=== PATIENT | male | born 1990 | race African-American/Black ===

== ENCOUNTER 2021-02-23 13:30 | Emergency (ER) | payer SELFPAY ==
[2021-02-23 13:38] VITALS: BP 128/83; PULSE 64; RESP 18; TEMP 37.1; O2SAT 98; BMI 20.2
--- NOTE | 2021-02-23 13:53 | ECG_ITS ---
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 Measurements Intervals [place] Rate: 54 P: 67 WA: 191 QRS: 75 QRSD: 95 T: 71 QT: 426 QTc: 406 Interpretive Statements SINUS BRADYCARDIA No previous ECG available for comparison Electronically Signed On 02-23-2021 19:56:05 CDT by Bradford Simpson M.D. [id number]
--- NOTE | 2021-02-23 13:53 | XR_ITS ---
WS: [id number] Portable AP upright chest, 02/23/2021 Clinical Data: chest pain Comparison: None. Findings: No nodules, masses or effusions are seen. The heart is normal. The pulmonary vascularity is not increased. No pneumonia or pneumothorax is seen. XR/XR chest 1V portable [id number] Impression: Negative chest.
--- NOTE | 2021-02-23 15:43 | PC.NURSE ---
Patient nurse is at bedside.
--- NOTE | 2021-02-23 15:50 | W.ED.CHESTPA ---
HPI - Chest Pain General: Chief Complaint: Chest Pain Stated Complaint: LUNG PAIN Time Seen by Provider: 02/23/21 15:24 History of Present Illness: HPI narrative: 30-year-old black male presents emergency room complaining of left upper chest pain. Is worse when he takes a deep breath. He is equated it with a dust and his asthma. He is not currently on any antibiotics. He does use albuterol as needed for his asthma. He also has a history of Crohn's has not been particularly having any difficulty with that recently. He denies any productive cough denies any fever. Pain is positional and reproducible with motion and with deep inspiration MD complaint: chest pain Onset (ago): hour(s) Timing of current episode: episodic Prior episodes: No Onset: during rest Pain location: left chest Pain radiation: left arm Severity: moderate Quality: sharp Relieving factors: rest and remaining still Exacerbating factors: palpation and movement Associated symptoms: Deny abdominal pain, diaphoresis, dyspnea, fever(s), leg edema, nausea, palpitations, sense of impending doom, syncope, vomiting or other Treatment prior to arrival: none Review of Systems Const: Denies: fever(s) or diaphoresis ENMT: Denies: throat pain, ear or mastoid pain, nasal discharge or nasal congestion Card: Denies: palpitations or syncope Resp: Denies: dyspnea, productive cough or non-productive cough GI: Denies: nausea or vomiting : Denies: flank pain, dysuria, urinary frequency or urinary urgency Skin/Breast: Denies: rash or pruritus Physical Exam Const: COMMON NORMALS: no acute distress GENERAL APPEARANCE: cooperative and comfortable ORIENTATION/CONSCIOUSNESS: Yes awake, Yes oriented to person, Yes oriented to place and Yes oriented to time HENMT: COMMON NORMALS: normocephalic, atraumatic and hearing grossly normal bilaterally HEAD & SCALP: normocephalic and atraumatic Neck/C-Spine: COMMON NORMALS: no JVD Resp: COMMON NORMALS: normal respiratory effort, No retractions, No use of accessory muscles and clear to auscultation bilaterally AUSCULTATION: clear to auscultation bilaterally Cardio: COMMON NORMALS: no JVD, regular rate, regular rhythm and No murmurs present (Cardio) RATE: regular rate RHYTHM: regular rhythm GI: COMMON NORMALS: Soft to palpation and No hepatosplenomegaly present AUSCULTATION: Yes normoactive bowel sounds PALPATION: Yes Soft to palpation, No Tenderness to palpation present (GI), No Guarding due to palpation present (GI) and Yes No hepatosplenomegaly present Extremity: COMMON NORMALS: normal to inspection, capillary refill normal, no clubbing, cyanosis or edema, no calf tenderness and no pedal edema Neuro: SENSORIUM/ORIENTATION: Yes oriented to person, Yes oriented to place and Yes oriented to time Skin: COMMON NORMALS: no rashes or lesions noted GENERAL SKIN EXAM: no rashes or lesions noted Course Vital Signs: Vital signs: Vital Signs Temperature 98.7 F 02/23/21 13:38 Pulse Rate 54 L 02/23/21 18:03 Respiratory Rate 18 02/23/21 18:03 Blood Pressure 112/79 02/23/21 18:03 Pulse Oximetry 98 02/23/21 18:03 MDM - Chest Pain MDM Narrative: Medical decision making narrative: Pain reproducible with palpation and deep inspiration we will go ahead and discharge home laboratories are unremarkable recheck if has any further problems. Lab Data: Labs: Lab Results 02/23/21 02/23/21 Range/Units 15:48 15:48 WBC 7.4 (4.0-10.0) 10^3/ uL RBC 4.96 (4.1-5.3) 10^6/u L Hgb 12.2 (11.7-16.6) g/dL Hct 38.5 L (42.0-52.0) % MCV 77.6 L (80-94) fL MCH 24.6 L (28.0-34.0) pg MCHC 31.7 (30.0-36.0) g/dL RDW 16.8 H (12.1-15.1) % Plt Count 283 (130-400) 10^3/c mm MPV 11.5 H (7.4-10.4) fL Neut % (Auto) 58.9 % Lymph % (Auto) 24.0 % [place] % (Auto) 11.1 % Eos % (Auto) 5.4 % Baso % (Auto) 0.5 % Neut # (Auto) 4.34 (1.8-7.7) 10^3/u L Lymph # (Auto) 1.8 (0.8-4.8) 10^3/u L [place] # (Auto) 0.8 (0.2-0.9) 10^3/u L Eos # (Auto) 0.4 (0.0-0.8) 10^3/u L Baso # (Auto) 0.0 (0.0-0.1) 10^3/u L Nucleated RBC % (a uto) 0 % Nucleated RBCs # 0.0 /100WBC Sodium 139 (136-145) mmol/L Potassium 4.0 (3.5-5.1) mmol/L Chloride 103 (98-107) mmol/L Carbon Dioxide 26 (22-29) mmol/L Anion Gap 14.0 (5-19) BUN 10 (6-20) mg/dL Creatinine 0.8 (0.7-1.2) mg/dL GFR Calculation 139.3 H (90-130) mL/min Glucose 80 (65-115) mg/dL Calculated Osmolal ity 286 (285-295) mOsm/k g Calcium 9.1 (8.5-10.5) mg/dL Total Bilirubin 0.3 (0.15-1.2) mg/dL AST 22 (0-40) U/L ALT 14 (0-41) U/L Alkaline Phosphata se 123 (40-130) IU/L Total Protein 8.5 (6.6-8.7) g/dL Albumin 4.0 (3.5-5.2) g/dL Globulin 4.5 (1.3-4.6) g/dL Discharge Plan Discharge Patient Disposition: Home Clinical Impression: Pleuritic chest pain, Asthma Condition: Stable Prescriptions: No Action Aleve Liquid Gels 2 cap PO PRN RF: 0 Ventolin HFA 90 mcg/actuation Hfa Aerosol Inhaler 2 puff INHALATION Q4H PRN (Reason: Shortness Of Breath) RF: 0 Discharge Orders: Discharge Order (Routine); Ordered 02/23/21 Ordered By: Arnold Patino Discharge ED (Routine); Ordered 02/28/21 Ordered By: Arnold Patino Discharge Diet: Usual diet Discharge Activity: Increase activity as tolerated Patient Instructions: Opioid Safety Coding Level of Care Code ED Power Washer for Raymondg Fwd Exam Comprehensive
[2021-02-23] MEDS: ketorolac 30 mg/mL INJ IVP (17:17)
[2021-02-23 17:20] VITALS: BP 130/80; PULSE 62; RESP 18; O2SAT 100
[2021-02-23 17:23] LABS: Basophils % 0.5 %; Eosinophils # 0.4 10^3/uL (0.0-0.8); Eosinophils % 5.4 %; Hematocrit 38.5 % (42.0-52.0); Hemoglobin 12.2 g/dL (11.7-16.6); Lymphocytes # 1.8 10^3/uL (0.8-4.8); Mean Corpuscular HGB Conc 31.7 g/dL (30.0-36.0); Mean Corpuscular Hemoglobin 24.6 pg (28.0-34.0); Mean Corpuscular Volume 77.6 fL (80-94); Mean Platelet Volume 11.5 fL (7.4-10.4); Monocytes # 0.8 10^3/uL (0.2-0.9); Monocytes % 11.1 %; Neutrophils # 4.34 10^3/uL (1.8-7.7); Neutrophils % 58.9 %; Nucleated Red Blood Cells % 0 %; Platelet Count 283 10^3/cmm (130-400); Red Blood Count 4.96 10^6/uL (4.1-5.3); Red Cell Distribution Width 16.8 % (12.1-15.1); White Blood Count 7.4 10^3/uL (4.0-10.0)
[2021-02-23 18:03] VITALS: BP 112/79; PULSE 54; RESP 18; O2SAT 98
[2021-02-23 18:07] LABS: Alanine Aminotransferase 14 U/L (0-41); Alkaline Phosphatase 123 IU/L (40-130); Aspartate Amino Transferase 22 U/L (0-40); Blood Urea Nitrogen 10 mg/dL (6-20); Calcium 9.1 mg/dL (8.5-10.5); Carbon Dioxide 26 mmol/L (22-29); Chloride 103 mmol/L (98-107); Globulin 4.5 g/dL (1.3-4.6); Glomerular Filtration Rate 139.3 mL/min (90-130); Glucose 80 mg/dL (65-115); Osmolality Calculated 286 mOsm/kg (285-295); Sodium 139 mmol/L (136-145); Total Bilirubin 0.3 mg/dL (0.15-1.2); Total Protein 8.5 g/dL (6.6-8.7)
== END 2021-02-23 18:04 | disposition home or self-care (01) ==
LOC: ER 15:24 → NP 17:51
PROVIDERS: Emergency Provider Family Medicine
DX: R07.89 Other chest pain (principal); J45.909 Unspecified asthma, uncomplicated
CPT/HCPCS: 71045; 80053; 85025; 93005; 96374; 99283; J1885